=== PATIENT | female | born 1965 | race Caucasian/White ===

== ENCOUNTER 2023-05-30 15:53 | Outpatient (CLI) | payer OTHER, SELFPAY ==
--- NOTE | 2023-05-30 16:00 | CRLHL7_ITS ---
For Patients: As a result of the Cures Act, medical imaging exams and procedure reports are released immediately into your electronic medical record. You may view this report before your referring provider. If you have questions, please contact your health care provider. INDICATION: Other specified soft tissue disorders. Recent trauma. COMPARISON: None. TECHNIQUE: A compression venous ultrasound exam was performed of the left lower extremity using smith-scale imaging, color Doppler and spectral Doppler analysis. FINDINGS: Sonographic imaging of the left lower extremity demonstrates normal compressibility and color Doppler venous blood flow within the common femoral, femoral, deep femoral, and proximal greater saphenous veins. At a lower level the popliteal, peroneal, and posterior tibial veins also show normal compressibility and color Doppler venous blood flow. Limited imaging of the contralateral groin demonstrates a normal spectral waveform and color Doppler venous blood flow within the right common femoral vein. IMPRESSION: Negative for acute DVT in the left lower extremity. Dictated by Marlena Medrano MD @ 05/30/2023 9:47:00 PM (Electronically Signed)
== END 2023-05-30 15:54 | disposition home or self-care (01) ==
LOC: US 15:56
PROVIDERS: PCP Physician Assistant Medical; Visit Provider Physician Assistant Medical
DX: M79.89 Other specified soft tissue disorders (principal)
CPT/HCPCS: 93971

== ENCOUNTER 2023-06-09 11:52 | Emergency (ER) | payer OTHER, SELFPAY ==
[2023-06-09 11:58] VITALS: BP 129/76; PULSE 87; RESP 18; TEMP 36.6; O2SAT 97; BMI 37.1
--- NOTE | 2023-06-09 12:45 | CRLHL7_ITS ---
For Patients: As a result of the Century Cures Act, medical imaging exams and procedure reports are released immediately into your electronic medical record. You may view this report before your referring provider. If you have questions, please contact your health care provider. INDICATION: Left leg pain and swelling. Lump anterior lower leg. TECHNIQUE: Ultrasound venous duplex lower left extremity. Compression venous exam was performed using smith-scale, color Doppler, and spectral Doppler analysis. COMPARISON: 05/30/2023 FINDINGS: Sonographic imaging demonstrates the left common femoral, deep femoral, superficial femoral, popliteal, posterior tibial and greater saphenous and the contralateral right common femoral veins to be fully compressible with normal color Doppler blood flow. Subcutaneous hematoma in the anterior left lower extremity, measuring 9.0 x 1.1 x 5.8 cm. IMPRESSION: 1. No left lower extremity DVT. 2. Subcutaneous hematoma in the left lower extremity, measuring 9.0 x 1.1 x 5.8 cm. Dictated by Salty Howard MD @ 06/09/2023 4:42:08 PM Dictated by: Salty Howard MD @ 06/09/2023 16:42:15 (Electronically Signed)
--- NOTE | 2023-06-09 15:17 | ED.NURSE ---
pt had ultrasound and is waiting in waiting room. pt updated that results still pending and is okay with staying in waiting room until results back.
--- NOTE | 2023-06-09 15:20 | ED.NURSE ---
pt roomed, dr. batres talking to her.
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
--- OUTSIDE RECORDS SUMMARY | 2023-06-09 15:50 | XMS_ITS | Continuity of Care Document ---
Author Name Unknown Organization [facility] Address [address] [address] [place] [address] Phone Care Team Providers Care Jockey Room Custodian Name Role Phone Fern BORRERO, Ahchanelle Unavailable Unavailable Allergies, Adverse Reactions, Alerts Substance Reaction Status Criticality PENICILLIN Active No Information Medications Medication Instructions Dosage Effective Dates (start - stop) Status Comments sulfasalazine 500 mg tablet,delayed release take 3 tablet by oral route 2 times every day after meals 1500 MG - Active Victoza 2-Georges 0.6 mg/0.1 mL (18 mg/3 mL) subcutaneous pen injector inject 1.8 milligrams by subcutaneous route every day 1.8 milligrams - Active rosuvastatin 40 mg tablet take 1 tablet by oral route every day 40 MG - Active Jardiance 25 mg tablet take 1 tablet by oral route every day in the morning 25 MG - Active folic acid 1 mg tablet take 1 tablet by oral route every day 1 MG - Active metformin 500 mg tablet take 2 tablet by oral route 2 times every day with morning and evening meals 1000 MG - Active Procedures Procedure Date Routine Serum Collection Offic/outpt E&m Estab Low-mod 3 Routine Serum Collection Colonoscopy Flex; W/bx 1/mx Level Iv-surg Path Gross/micro 23 Routine Serum Collection Offic/outpt E&m Estab Low-mod 2 Routine Serum Collection Offic/outpt E&m Estab Low-mod 1 Routine Serum Collection Established Level 2 Routine Serum Collection Urea Nitro; Real Creatinine; Bld Offic/outpt E&m Estab Mod-hi 2 19 Routine Serum Collection Comp Metabolic Panel Ferritin Bilirubin; Direct Iron Iron Binding Capacity Vitamin D; [address]; Hg/pltlt Ct Auto/compl 19 Routine Serum Collection Urea Nitro; Real Creatinine; Bld Offic/outpt E&m Estab Low-mod 8 Routine Serum Collection Immuniz Admin; 1/combo Vacc/to 18 Pneumococcal Polysacch Vac-stephon 18 Vitamin D; 25 Hydroxy Basic Metabolic Panel Offic/outpt E&m New Mod-hi Routine Serum Collection Immuniz Admin; 1/combo Vacc/to 18 [id number] Vaccine Iron Iron Binding Capacity Ferritin Bilirubin; Direct Comp Metabolic Panel Bld Ct; Hg/pltlt Ct Auto/compl 18 Advance Directives Directive Yes / No Effective Date File Name No Information Encounters Encounter Description Practice Location Reason(s) For Visit Diagnoses Date Provider Providers Copied on Encounter [facility], [address] [address], [place], [id number], [place] tel:[phone] [facility] No Information 3 Fern Sim. [address] [facility], [facility] [address], [place], [place], [id number], [place]. tel:[phone] [facility] [address] [address], [place], [id number], [place] tel:[phone] [facility] Ulcerative (chronic) pancolitis without complications [address] [place] [address], [address], [id number], [place]. tel:[phone] Referring Provider: Referral Self. [facility], [address] [address], [place], [id number], [place] tel:[phone] [facility] No Information 3 Fern Sim. [address] [place] [address], [facility] [address], [place], [id number], [place]. tel:[phone] Offic/outpt E&m Estab Low-mod [facility], [address] [address], [place], [id number], [place] tel:[phone] [facility] GI Symptoms or Concerns (chief complaint) Ulcerative (chronic) pancolitis without complications 3 Fern Sim. [address] [facility], [address], [id number], [place]. tel:[phone] Referring Provider: Referral Self. [facility], [address] [address], [place], [id number], [place] tel:[phone] [facility] GI Symptoms or Concerns (chief complaint) Ulcerative (chronic) pancolitis without complicationsE xternal hemorrhoidsEnc ounter for screening for malignant neoplasm of colonResidual hemorrhoidal skin tagsUlcerative (chronic) pancolitis without complications 3 Fern Sim. [address] [facility], [facility] [address], [place], [id number], [place]. tel:[phone] Referring Provider: Referral Self. [facility], [address] [address], [place], [id number], [place] tel:[phone] [facility] No Information 2 No Information [facility], [address] [address], [place], [id number], [place] tel:[phone] [facility] Chronic ulcerative rectosigmoidit is without complications [address] [place] [address], [id number], [place]. tel:[phone] Referring Provider: Referral Self. [facility], [address] [address], [place], [place], [id number], [place] tel:[phone] [facility] No Information 2 Fern Sim. [address] [place] [address], [id number], [place]. tel:[phone] Offic/outpt E&m Estab Low-mod [facility], [address] [address], [place], [place], [id number], [place] tel:[phone] [facility] GI Symptoms or Concerns (chief complaint) Ulcerative pancolitis 2 Fern Sim. [address] [place] [address], [id number], [place]. tel:[phone] Referring Provider: Referral Self. Offic/outpt E&m Estab Low-mod [facility], [address] [address], [place], [place], [id number], [place] tel:[phone] [facility] GI Symptoms or Concerns (chief complaint) Chronic ulcerative rectosigmoidit is without complicationsP ersonal history of colonic polyps 1 Fern Sim. [address] [place] [address], [id number], [place]. tel:[phone] Referring Provider: Gertrudis ELY, [address] [place], [address]. tel:[phone] [facility], [address] [address], [place], [place], [id number], [place] tel:[phone] [facility] Chronic ulcerative rectosigmoidit is without complications 1 Fern Sim. [address] [place] [address], [id number], [place]. tel:[phone] Referring Provider: Referral Self. [facility], [address] [address], [place], [id number], [place] tel:[phone] [facility] No Information 1 Bhumi Estrada. [address] [facility], [facility] [address], [place], [id number], [place]. [phone] Established Level 2 [facility], [address] [address], [place], [id number], [place] tel:[phone] [facility] GI Symptoms or Concerns (chief complaint) Chronic ulcerative rectosigmoidit is without complications 1 Alex Awad. [address] [facility], [address], [id number], [place]. [phone] Referring Provider: Referral Self. [facility], [address] [address], [place], [id number], [place] tel:[phone] [facility] No Information 1 Fern Sim. [address] [facility], [facility] [address], [place], [id number], [place]. [phone] [facility], [address] [address], [place], [id number], [place] tel:[phone] [facility] Ulcerative (chronic) rectosigmoidit is without complications 9 Fern Sim. [address] [facility], [facility] [address], [place], [id number], [place]. tel:[phone] Referring Provider: Referral Self. [facility], [address] [address], [place], [id number], [place] tel:[phone] [facility] Ulcerative rectosigmoidit is without complication 9 Fern Sim. [address] [facility], [address], [id number], [place]. tel:[phone] Offic/outpt E&m Estab Mod-hi 2 [facility], [address] [address], [place], [id number], [place] tel:[phone] [facility] GI Symptoms or Concerns (chief complaint) Ulcerative rectosigmoidit is without complicationPe rsonal history of colonic polypsDietary counseling and surveillanceEl evated blood-pressure reading, w/o diagnosis of htn 9 Fern Sim. [address] [facility], [facility] [address], [place], [place], [id number], [place]. tel:[phone] Referring Provider: Referral Self. [facility], [address] [address], [place], [id number], [place] tel:[phone] [facility] No Information 9 Bhumi Estrada. [address] [facility], [facility] [address], [place], [id number], [place]. tel:[phone] [facility], [address] [address], [place], [id number], [place] tel:[phone] [facility] Ulcerative rectosigmoidit is without complication 9 Fern Sim. [address] [facility], [facility] [address], [place], [id number], [place]. tel:[phone] Referring Provider: Chiquis Shirley MD, [address] [facility] [address], [facility] [place], [address] . tel:[phone] Offic/outpt E&m Estab Low-mod [facility], [address] [address], [place], [id number], [place] tel:[phone] [facility] GI Symptoms or Concerns (chief complaint) Ulcerative rectosigmoidit is without complicationDi etary counseling and surveillance 8 Fern Sim. [address] [facility], [facility] [address], [place], [id number], [place]. tel:[phone] Referring Provider: Referral Self. Offic/outpt E&m New Mod-hi [facility], [address] [address], [place], [id number], [place] tel:[phone] [facility] GI Symptoms or Concerns (chief complaint) Ulcerative rectosigmoidit is without complicationDi etary counseling and surveillance 8 Fern Sim. [address] [facility], [facility] [address], [place], [place], [id number], [place]. tel:[phone] Referring Provider: Emily Huang MD S, [address] [place], [address]. tel:[phone] Family History Family Member Type Diagnosis Age At Onset Son Problem (finding) Alive and well Brother Problem (finding) asthma Father Problem (finding) Thyroid disorder Mother Problem (finding) Irritable bowel disease Brother Problem (finding) Thyroid disorder Sister Problem (finding) Thyroid disorder Mother Problem (finding) Daughter Problem (finding) asthma Daughter Problem (finding) Alive and well Sister Problem (finding) Alive and well Immunizations Vaccine Date Status Comments Influenza administered Note: [facility] bi-d irectional interface ; Source: Other Registry Influenza, injectable, Madin Sridevi Canine Kidney, quadrivalent with preservative administered Note: MII C bi- directional interface ; Source: Other Registry SARS-COV-2 (COVID-19) vaccin e, mRNA, spike protein, LNP, preservative free, 30 mcg/0.3mL dose administered Note: [facility] bi-direct ional interface ; Source: Other Registry SARS-COV-2 (COVID-19) vaccin e, mRNA, spike protein, LNP, preservative free, 30 mcg/0.3mL dose administered Note: [facility] bi-direct ional interface ; Source: Other Registry Influenza administered Note: [facility] bi-d irectional interface ; Source: Other Registry Fluzone Quad 6mo or older administered Source: Other Provid er Influenza administered Note: [facility] bi-d irectional interface ; Source: Other Registry Pneumovax 23 administered Note: [facility] bi-d irectional interface ; Source: Other Registry Pneumo (2 yrs or older)(PPV) administered Source: New Immunization Record Influenza, injectable, MDCK, preservative free Flucelvax Quad 2017-2018Y administered Source: Other Provid er Afluria Qd administered Note: M [facility] bi-directional interface ; Source: Other Registry Afluria Qd administered Note: M [facility] bi-directional interface ; Source: Other Registry Fluzone Quad 6mo or older administered Note: [facility] bi-direct ional interface ; Source: Other Registry Prevnar administered Note: [facility] bi-d irectional interface ; Source: Other Registry Pneumococcal conjugate PCV administere d Source: New Immunization Record Influenza administered Note: [facility] bi-d irectional interface ; Source: Other Registry Influenza, injectable, quadrivalent, preservative free, 3 yrs or older administered Source: Other Provi poornima tetanus toxoid, reduced diphtheria toxoid, and acellular pertussis vaccine, adsorbed administered Note: [facility] bi-direct ional interface ; Source: Other Registry influenza, high dose seasona l, preservative-free administered Note: [facility] bi-direct ional interface ; Source: Other Registry Influenza administered Note: [facility] bi-d irectional interface ; Source: Other Registry Influenza, injectable,quadrivalent, preservative free, pediatric administered Note: [facility] bi-directional interface ; Source: Other Registry tetanus toxoid, reduced diphtheria toxoid, and acellular pertussis vaccine, adsorbed administered Note: [facility] bi-direct ional interface ; Source: Other Registry Influenza, seasonal, injectable, preservative free administered Note: [facility] bi-directional interface ; Source: Other Registry Influenza, seasonal, injectable, preservative free administered Note: [facility] bi-directional interface ; Source: Other Registry Influenza, seasonal, injectable, preservative free administered Note: [facility] bi-directional interface ; Source: Other Registry Influenza, seasonal, injectable, preservative free administered Note: [facility] bi-directional interface ; Source: Other Registry hepatitis B immune globulin administered Note: [facility] bi-directional interface ; Source: Other Registry Engerix-B administered Note: [facility] bi-d irectional interface ; Source: Other Registry Hep B, adult, 3 dose administered Source: Other Provider Influenza, seasonal, injectable administe red Note: [facility] bi- directional interface ; Source: Other Registry hepatitis B vaccine, unspecified formulation administered Note: [facility] bi-di rectional interface ; Source: Other Registry Hep B, adult, 3 dose administered Source: Other Provider hepatitis B vaccine, unspecified formulation administered Note: [facility] bi-di rectional interface ; Source: Other Registry Hep B, adult, 3 dose administered Source: Other Provider Influenza, seasonal, injectable administe red Note: [facility] bi- directional interface ; Source: Other Registry Influenza, seasonal, injectable administe red Note: [facility] bi- directional interface ; Source: Other Registry influenza virus vaccine, unspecified formulation administered Note: [facility] bi-di rectional interface ; Source: Other Registry influenza virus vaccine, unspecified formulation administered Note: [facility] bi-di rectional interface ; Source: Other Registry tetanus and diphtheria toxoi ds, adsorbed, preservative free, for adult use (2 Lf of tetanus toxoid and 2 Lf of diphtheria toxoid) administered Note: [facility] bi-direct ional interface ; Source: Other Registry immune globulin, intramuscular administer ed Note: [facility] bi- directional interface ; Source: Other Registry Payers Payer name Insurance type Covered libertarian ID Authorremingtona edmundo(s) Index CI [id number] [employer] Plan CI [id number] [employer] Plan CI [id number] Social History Type Description Quantity Date Captured Comments Alcohol Use Details Unknown Caffeine Use Details Unknown Tobacco Use Status No Information Smoking Status No Information Sex Female Chief Complaint And Reason For Visit No Information Reason For Referral Reason For Referral No Information Plan Of Treatment Date Type Action Status Goal Lifestyle education regardin g diet completed Goal Lifestyle education regardin g diet completed Goal Lifestyle education regardin g diet completed Referral Ordered: Colonoscopy Appointment date/timeframe: 09/19/2022 ordered Referral Ordered: follow-up visit with Chiquis Shirley MD 6 Months Appointment date/timeframe: 6 Months ordered Referral Ordered: Creatinine Appointment date/timeframe: 07/28/2019 ordered Referral Ordered: DEXA Bone Density Study; Axial Skeleton (e.g. Hips, Pelvis, Spine) Appointment date/timeframe: 09/05/2019 ordered History Of Present Illness Encounter Date Complaint History Of Prese nt Illness GI Symptoms or Concerns The luis ent is a 57-year-old female who had an in-person visit today for followup of ulcerative pancolitis diagnosed at age 20. I last saw the patient in GI Clinic in August 2021. She had been on balsalazide, but due to costs, was switched to sulfasalazine 3 tablets twice daily with folic acid 1 mg daily in August 2021. She reports she has been doing quite well on sulfasalazine. Denies any diarrhea or abdominal pain or rectal bleeding or rectal urgency. She has had a colonoscopy on September 19 of this year that showed 2 tiny patches of erythema with some tiny erosions, but the vast majority of the colon looked completely normal. Biopsies of these areas showed some minimal ulcerative colitis, but the remainder of the biopsies showed inactive ulcerative colitis. I reviewed her BUN and creatinine from July 31, 2022, and these were normal. GI Symptoms or Concerns GI Symptoms or Concerns The luis ent is a 56-year-old female who had in-person visit today for followup of ulcerative colitis. The patient was initially diagnosed with ulcerative proctitis at age 20. We received the records from an outside colonoscopy from June 2020. This revealed inactive ulcerative colitis throughout the entire colon with some mild ulcerative colitis in the transverse colon. The patient is still on balsalazide 4 tabs twice daily, but she has procured a supply of sulfasalazine and folic acid, and will be starting this soon when runs out of balsalazide as this will be less expensive than balsalazide. The patient reports she is doing well at this time. Denies any significant GI symptoms. I reviewed her BUN and creatinine from April, which were normal. The patient will be due for repeat colonoscopy with colon biopsies for dysplasia surveillance in June of this year. GI Symptoms or Concerns The luis ent is a 56-year-old female who had an in-person visit today for followup of ulcerative proctosigmoiditis. The patient initially was diagnosed with ulcerative proctitis at age 20, but subsequently developed ulcerative proctosigmoiditis. She was previously on Lialda, but switched to balsalazide as this was slightly cheaper, but is still relatively expensive. The patient reports that she had a colonoscopy at [facility] either last year or this year and she may have had some inflammation at that time. We do not have those results at this time. The patient denies any GI symptoms at this time. She denies any diarrhea or rectal bleeding or rectal urgency or abdominal pain. She had a BUN and creatinine from May 06, 2021, that were normal. I also reviewed her LFTs from May 03, 2021, at an outside facility and these were normal. She also had a CBC from April 2020 that was within acceptable limits. She reports she had a mildly low vitamin D level recentl GI Symptoms or Concerns Merle Lund is a 55-year-old woman with longstanding chronic proctosigmoiditis. She has generally done well on maintenance Lialda (mesalamine). It sounds like even the generic version of this has proved too costly ($2000 for 3-month prescription). She was met to discuss this recently with Dr. Shirley on a telephone visit, but she got caught on a work call that disrupted the timing of her visit with Dr. Shirley, thus this visit today. She is doing well with no symptoms and reports that her colitis has been quiescent for quite some time on maintenance treatment.She has been on sulfasalazine in the past and it sounds like she tolerated that.Today is a televisit. The patient consented to this format. She was home and comfortable with her visit setting. No one else was listening in. She denies any symptoms that would require immediate in-person evaluation. Direct patient discussion time was 9 minutes. A total of 15 minutes was spent on the appointment including chart rev GI Symptoms or Concerns Patient is a 54-year-old female who is here for followup of ulcerative proctosigmoiditis. She was last seen in GI clinic in June 2018.She was initially diagnosed with ulcerative proctitis in 03/2019 and subsequently found to have ulcerative proctosigmoiditis. She is currently on Lialda 4.8 g daily and overall doing quite well. Unfortunately, Lialda is quite expensive on her current insurance. Patient reports that overall she is doing quite well. She reports 1 to 2 semi formed to formed bowel movements per day and denies any significant abdominal pain or rectal bleeding or rectal urgency or nausea or vomiting or unintentional weight loss. She reports she has some occasional diarrhea more related to her diet and to metformin. Patient denies a prior bone density scan. GI Symptoms or Concerns The symp toms began 33 years ago. The symptoms are reported as being mild. The symptoms occur randomly. The location is rectosigmoid colon. Aggravating factors include nothing. Relieving factors include lialda. She states the symptoms are chronic and are controlled. The patient is a 53-year-old female who is here for followup of ulcerative proctosigmoiditis. The patient was diagnosed with ulcerative proctitis at age 20 and subsequently was found to have ulcerative proctosigmoiditis. She was initially treated with sulfasalazine for a few years and was off medications for a few years and then was treated with mesalamine enemas as needed. Her last colonoscopy which was in January 2017 revealed moderate rectosigmoid inflammation. The patient reports her disease has always been confined to the rectum and sigmoid. She was started on Lialda 4.8 g daily after that colonoscopy, but stopped taking it when she ran out in November 2017. At her last GI Clinic visit, we restarted her on Lialda 4 GI Symptoms or Concerns The symp toms began 32 years ago. The symptoms are reported as being mild. The symptoms occur randomly. The location is rectosigmoid colon. Aggravating factors include stress. Relieving factors include rowasa enemas, lialda. She states the symptoms are chronic and are stable. Patient is a 52-year-old female who is here for evaluation of ulcerative proctosigmoiditis. Patient reports she was diagnosed with ulcerative proctitis at age 20. She was treated with sulfasalazine for 4 to 5 years and then stopped taking medications, because she felt better. She reports she would have occasional flares of symptoms usually bloody diarrhea for a few days to a few weeks intermittently. Starting about 8 years ago, she started using mesalamine enemas as needed for these flares. She reports that she used these enemas, perhaps for 4 episodes over that 8-year period. She reports she had a colonoscopy in March 2014 that revealed 1 colon polyp, but otherwise the inflammation was minimal. She had Functional Status Date Functional Assessmen t No Information Instructions Date Instruction Additional Infor eduardo -Labs as ordered-Con tinue sulfasalazine 3 tabs twice daily and folic acid 1 mg daily-Repeat colonoscopy with colon biopsies for dysplasia surveillance in 08/2024-Avoid NSAIDs-Vitamin D 2000 units daily-Calcium citrate 600 mg twice daily if okay with PCP/urologist given history of kidney stones-Pneumovax booster in [id number]/[id number] in 1 year Related to Ulcerative (chronic) pancolitis without complications Colon Cancer Prevention Related to External hemorrhoids Hemorrhoids (External) Related t o External hemorrhoids -Labs as ordered-Pat ient will switch from balsalazide 4 tabs twice daily to sulfasalazine 3 tabs twice daily and folic acid when current supply of balsalazide runs out - patient will gradually increase to goal dose of sulfasalazine 3 tabs twice daily over a 2-3 week period-Colonoscopy with colon biopsies for dysplasia surveillance in 06/2022-Avoid NSAIDs-Vitamin D 2000 units daily-Calcium citrate 600 mg twice daily if okay with PCP/urologist given history of kidney stones-Pneumovax booster in 06/20230036-[id number] in 06/2022, after colonoscopy - patient will follow-up before then if she develops persistent significant GI symptoms Related to Ulcerative pancolitis -Patient will switch from balsalazide to sulfasalazine and folic acid as sulfasalazine is likely to be less expensive - patient will gradually increase to goal dose of sulfasalazine 3 tabs twice daily over a 2-3 week period-Will request results of colonoscopy performed at 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 -Labs as ordered-Con tinue Lialda 4.8 grams daily - this medication is expensive on her insurance plan so she will check with her insurance and will let us know if she wants to switch to another less expensive mesalamine medication or to sulfasalazine and folic acid - we discussed that if she starts sulfasalazine then she will gradually increase the dose to the goal dose of 3 tabs twice daily over a 10-14 day period-Avoid NSAIDs-Calcium citrate and vitamin D-Bone density scan-Repeat colonoscopy in 01/2022 due to history of colon mlcsrl-Ertfko-uh in 1 year 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 Lifestyle education regarding di et Related to Dietary counseling and surveillance -Labs as ordered-Con tinue Lialda 4.8 grams daily-Avoid NSAIDs-Calcium and vitamin D-Pneumovax vaccine today-Repeat colonoscopy in 01/2022 due to history of colon erhnfe-Iumoma-ub in 1 year 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 Lifestyle education regarding di et Related to Dietary counseling and surveillance -Labs as ordered-Res tart Lialda 4.8 grams daily - new prescription sent-Avoid NSAIDs-Calcium and vitamin D-Prevnar vaccine today-Pneumovax vaccine after at least 8 weeks-Repeat colonoscopy in 01/2022 due to history of colon tnlksm-Ecfskc-du in 6 months 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
== END 2023-06-09 15:50 | disposition home or self-care (01) ==
LOC: ED 15:47
PROVIDERS: Emergency Provider Family Medicine; PCP Physician Assistant Medical
DX: S89.92XA Unspecified injury of left lower leg, initial encounter (principal); W10.9XXA Fall (on) (from) unspecified stairs and steps, initial encounter
CPT/HCPCS: 93971; 99283; 99284

== ENCOUNTER 2023-07-24 08:44 | Outpatient (CLI) | payer OTHER, SELFPAY ==
--- OUTSIDE RECORDS SUMMARY | 2023-07-25 06:39 | XMS_ITS | Continuity of Care Document ---
Author Name Unknown Organization [facility] Address [address] [address] [place] [address] Phone Care Team Providers Care Video Machines Mechanic Name Role Phone Joe Romero MD Unavailable Unavailabl e Allergies, Adverse Reactions, Alerts Substance Reaction Status [...] Serum Collection Immuniz Admin; 1/combo Vacc/to 18 [id number] Vaccine Iron Iron Binding Capacity Ferritin Bilirubin; Direct Comp Metabolic Panel Bld Ct; Hg/pltlt Ct Auto/compl 18 Advance Directives Directive Yes / No Effective Date File Name No Information Encounters Encounter Description Practice Location Reason(s) For Visit Diagnoses Date Provider Providers Copied on Encounter [facility] [address] [address], [place], [id number], [place] tel:[phone] [facility] No Information 3 Jaime Diaz. [address] [facility], [place], [place], [id number], [place]. tel:[phone] [facility] [address] [address], [place], [id number], [place] tel:[phone] [facility] Ulcerative (chronic) pancolitis without complications 3 Fern Sim. [address] [facility], [address], [place], [address], [place]. tel:[phone] Referring Provider: Referral Self, USE FOR SELF REFERRALS. [facility], [address] [address], [place], [id number], [place] tel:[phone] [facility] No Information 3 Fern Sim. [address] [facility], [place], [address], [place]. tel:[phone] Offic/outpt E&m Estab Low-mod [facility], [address] [address], [place], [id number], [place] tel:[phone] [facility] GI Symptoms or Concerns (chief complaint) Ulcerative (chronic) pancolitis without complications 3 Fern Sim. [address] [facility], [address], [place], [address], [place]. tel:[phone] Referring Provider: Referral Self, USE FOR SELF REFERRALS. [facility], [address] [address], [place], [id number], [place] tel:[phone] [facility] GI Symptoms or Concerns (chief complaint) Ulcerative (chronic) pancolitis without complicationsE xternal hemorrhoidsEnc ounter for screening for malignant neoplasm of colonResidual hemorrhoidal skin tagsUlcerative (chronic) pancolitis without complications 3 Fern Sim. [address] [place] [address], [address], [place], [id number], [place]. tel:[phone] Referring Provider: Referral Self, USE FOR SELF REFERRALS. [facility], [address] [address], [place], [id number], [place] tel:[phone] [facility] No Information 2 No Information [facility], [address] [address], [place], [id number], [place] tel:[phone] [facility] Chronic ulcerative rectosigmoidit is without complications 2 Fern Sim. [address] [facility], [place], [place], [address], [place]. tel:[phone] Referring Provider: Referral Self, USE FOR SELF REFERRALS. [facility], [address] [address], [place], [id number], [place] tel:[phone] [facility] No Information 2 Fern Sim. [address] [place] [address], [place] [address], [place], [address], [place]. tel:[phone] Offic/outpt E&m Estab Low-mod [facility], [address] [address], [place], [id number], [place] tel:[phone] [facility] GI Symptoms or Concerns (chief complaint) Ulcerative pancolitis 2 Fern Sim. [address] [place] [address], [address], [place], [address], [place]. tel:[phone] Referring Provider: Referral Self, USE FOR SELF REFERRALS. Offic/outpt E&m Estab Low-mod [facility], [address] [address], [place], [id number], [place] tel:[phone] [facility] GI Symptoms or Concerns (chief complaint) Chronic ulcerative rectosigmoidit is without complicationsP ersonal history of colonic polyps 1 Fern Sim. [address] [place] [address], [address], [place], [place], [id number], [place]. tel:[phone] Referring Provider: Gertrudis ELY, [address], [address]. tel:[phone] [facility], [address] [address], [place], [id number], [place] tel:[phone] [facility] Chronic ulcerative rectosigmoidit is without complications 1 Fern Sim. [address] [facility], [address], [place], [address], [place]. tel:[phone] Referring Provider: Referral Self, USE FOR SELF REFERRALS. [facility], [address] [address], [place], [address], [place] tel:[phone] [facility] No Information 1 Bhumi Estrada. [address] [facility], [address], [id number], [place]. tel:[phone] Established Level 2 [facility], [address] [address], [place], [address], [place] tel:[phone] [facility] GI Symptoms or Concerns (chief complaint) Chronic ulcerative rectosigmoidit is without complications [address] Awad. [address] [place] [address], [id number], [place]. tel:[phone] Referring Provider: Referral Self, USE FOR SELF REFERRALS. [facility], [address] [address], [place], [address], [place] tel:[phone] [facility] No Information 1 Fern Sim. [address] [place] [address], [id number], [place]. tel:[phone] [facility], [address] [address], [place], [address], [place] tel:[phone] [facility] Ulcerative (chronic) rectosigmoidit is without complications 9 Fern Sim. [address] [place] [address], [id number], [place]. tel:[phone] Referring Provider: Referral Self, USE FOR SELF REFERRALS. [facility], [address] [address], [place], [address], [place] tel:[phone] [facility] Ulcerative rectosigmoidit is without complication 9 Fern Sim. [address] [facility] [address], [place], [address], [place]. tel:[phone] Offic/outpt E&m Estab Mod-hi 2 [facility], [address] [address], [place], [address], [place] tel:[phone] [facility] GI Symptoms or Concerns (chief complaint) Ulcerative rectosigmoidit is without complicationPe rsonal history of colonic polypsDietary counseling and surveillanceEl evated blood-pressure reading, w/o diagnosis of htn 9 Fern Sim. [address] [facility], [address], [place], [id number], [place]. tel:[phone] Referring Provider: Referral Self, USE FOR SELF REFERRALS. [facility], [address] [address], [place], [address], [place] tel:[phone] [facility] No Information 9 Bhumi Estrada. [address] [facility], [place], [place], [id number], [place]. tel:[phone] [facility], [address] [address], [place], [address], [place] tel:[phone] [facility] Ulcerative rectosigmoidit is without complication 9 Fern Sim. [address] [facility], [address], [id number], [place]. tel:[phone] Referring Provider: Chiquis Shirley MD, [address] [facility] [address], [place], [address] . tel:[phone] Offic/outpt E&m Estab Low-mod [facility], [address] [address], [facility] [place], [address], [place] tel:[phone] [facility] GI Symptoms or Concerns (chief complaint) Ulcerative rectosigmoidit is without complicationDi etary counseling and surveillance 8 Fern Sim. [address] [place] [address], [place] [address], [place], [address], [place]. tel:[phone] Referring Provider: Referral Self, USE FOR SELF REFERRALS. Offic/outpt E&m New Mod-hi [facility], [address] [address], [place], [place], [id number], tel:[phone] [facility] GI Symptoms or Concerns (chief complaint) Ulcerative rectosigmoidit is without complicationDi etary counseling and surveillance 201 8 Fern BORRERO chanelle. [address] [facility], [address], [place], [place], [address], [place]. tel:[phone] Referring Provider: Emily Huang MD S, [address] [place], [address]. tel:[phone] Family History Family Member Type Diagnosis Age [...] Registry Payers Payer name Insurance type Covered alliance party ID Roselyn wyatt(s) [employer] [place] [id number] [employer] [place] [id number] [employer] [place] [id number] Social History Type Description Quantity Date Captured Comments Sex Female Smoking Status No Information Chief Complaint And Reason For Visit No [...] Hips, Pelvis, Spine) Appointment date/timeframe: 09/05/2019 ordered Appointment Merle Lund BOOKED History Of Present Illness Encounter Date Complaint [...] reports that she had a colonoscopy at [facility] either last year or this year and [...] given history of kidney stones-Pneumovax booster in 06/20238638-Igzqvx-vh in 1 year Related to Ulcerative (chronic) [...] given history of kidney stones-Pneumovax booster in 06/20230179-Gthgxw-dm in 06/2022, after colonoscopy - patient will [...] period-Will request results of colonoscopy performed at [facility]-Avoid NSAIDs-Calcium citrate and vitamin D-Patient will need repeat colonoscopies with random colon biopsies for dysplasia surveillance every 2 pvaag-Heslyf-lr in 3 months Related to Chronic ulcerative [...] in 01/2022 due to history of colon gdjred-Yaxgvw-br in 1 year 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 Lifestyle education regarding di et Related to Dietary counseling and surveillance -Labs as ordered-Con tinue Lialda 4.8 grams daily-Avoid NSAIDs-Calcium and vitamin D-Pneumovax vaccine today-Repeat colonoscopy in 01/2022 due to history of colon snxkhf-Ixdlbe-nl in 1 year 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 Lifestyle education regarding di et Related to Dietary counseling and surveillance -Labs as ordered-Res tart Lialda 4.8 grams daily - new prescription sent-Avoid NSAIDs-Calcium and vitamin D-Prevnar vaccine today-Pneumovax vaccine after at least 8 weeks-Repeat colonoscopy in 01/2022 due to history of colon qsdfmv-Xxlkqa-jn in 6 months 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
== END 2023-07-24 08:45 | disposition home or self-care (01) ==
LOC: NFLDREF 07-25 06:37
PROVIDERS: PCP Physician Assistant Medical; Referring Provider Physician Assistant Medical; Visit Provider Physician Assistant Medical
DX: Z00.00 Encounter for general adult medical examination without abnormal findings (principal); E11.9 Type 2 diabetes mellitus without complications; E78.5 Hyperlipidemia, unspecified; E55.9 Vitamin D deficiency, unspecified; E66.9 Obesity, unspecified
CPT/HCPCS: 80053; 80061; 82043; 82570; 82607; 84443

== ENCOUNTER 2024-04-21 08:14 | Outpatient (CLI) | payer OTHER, SELFPAY | END 2024-04-21 08:15 | disposition home or self-care (01) | PROVIDERS: PCP Physician Assistant Medical; Visit Provider Physician Assistant Medical | DX: Z00.00 Encounter for general adult medical examination without abnormal findings (principal); E11.9 Type 2 diabetes mellitus without complications; E78.5 Hyperlipidemia, unspecified; E55.9 Vitamin D deficiency, unspecified; E66.9 Obesity, unspecified | CPT/HCPCS: 80076 ==

== ENCOUNTER 2024-07-01 16:12 | Outpatient (CLI) | payer OTHER, SELFPAY ==
--- OUTSIDE RECORDS SUMMARY | 2024-07-01 16:15 | XMS_ITS | Clinical Summary ---
Author Organization [employer] Address [address] [place] [address] Care Team Providers Care Headmaster/Mistress Name Role Phone Юлия Ascencio MD Primary Care Provider [phone] Source Comments You are receiving this document as you are listed as the primary care provider,follow-up provider, or the patient has been referred to you for consultation.This is in compliance with the Medicare and[facility] Foundation[facility] EHR Incentive Program,which states Providers who transition their patient to another setting of careor provider of care or refers their patient to another provider of care shouldprovide summary care record for each transition of care or referral. [employer] (formerly [employer]) Allergies Active Allergy Reactions Criticality Noted Date Comments Penicillins Unknown 04/29/2020 Unknown Medications Medication Sig Dispensed Refills Start Date End Date Status UNKNOWN MEDICATION LW Comment:CPAP 13 CM H2O [facility] LW Addl Instr:SS 03/20/2005 AHI 79 RDI 95 low sats 86% SAK PATIENT SEEN IN [place] 08/17/2010 Active cholecalciferol (VITAMIN D3) 1000 UNITS tablet Take 2,000 Units by mouth daily. Active mesalamine (LIALDA) 1.2 G enteric coated tablet Take 4,800 mg by mouth daily with breakfast. Active metFORMIN (GLUCOPHAGE) 500 MG tablet Take 2 Tabs by mouth two times a day with meals. 360 Tab 3 11/08/2017 Active omega-3 fatty acids (FISH OIL) 1000 MG capsule Take 2 g by mouth daily. Active Artificial Tear Solution (SOOTHE XP OP) Active rosuvastatin (CRESTOR) 10 MG tabletIndications :Type 2 diabetes mellitus without complication, without long-term current use of insulin (HRC) Take 1 Tablet by mouth daily. 90 Tablet 3 11/19/2019 Active JARDIANCE 25 MG tablet Take 1 Tablet (25 mg) by mouth daily. 07/03/2022 Active folic acid 1 MG tablet Take 1 Tablet (1 mg) by mouth daily. 08/02/2022 Active VICTOZA 18 MG/3ML SOPN injection Inject 1.2 mg subcutaneously daily. 06/18/2022 Active sulfaSALAzine (AZULFIDINEENTAB) 500 MG enteric coated tablet Take 3 Tablets (1,500 mg) by mouth two times a day. 08/03/2022 Active Active Problems Problem Noted Date Diagnosed Date Morbid obesity with BMI of 40.0-44.9, adult 02/25 Type II diabetes mellitus 02/04/2017 Hyperlipidemia 02/04/2017 Bicuspid aortic valve 02/04/2017 Ascending aortic aneurysm 02/04/2017 Ulcerative colitis 02/04/2017 Sleep apnea 07/13/2005 Overview (04/18/2017): LW Modifier: CPAP 13 CM H2O [facility] LW Onset: ; Obstructive Sleep Apnea Hypopnea Disorder of intestine 01/06/2004 Overview (04/18/2017): Sees 1-2 flare ups in last 7 years. ; Proctosigmoiditis Resolved Problems Problem Noted Date Diagnosed Date Resolved Date Obesity, morbid 03/26/2013 05/31/2017 Immunizations Name Administration Dates Next Due Flu Vac Preserv Free (3+yrs) 06/15/2004 IG (Immune Globulin) 07/21/1994 Influenza IIV4 (Quadrivalent) 0.5mL (35881) 04/27 Influenza, Unspecified Formulation 08/07/2003 TDAP (BOOSTRIX) 03/06/2013 Td 04/14/2003 Family History Medical History Relation Name Comments Cataract Father Diabetes Father High Cholesterol Father Hypertension Father Retinal Detachment Father x2 Coronary Artery Disease Mother Diabetes Mother High Cholesterol Mother Hypertension Mother Diabetes Brother Diabetes Paternal Grandfather Diabetes Paternal Grandmother Cataract Sister Amblyopia/Strabismus Negative Family History Cancer, Breast Negative Family History Glaucoma Negative Family History Macular Degeneration Negative Family History Relation Name Status Comments Father Mother Brother Paternal Grandfather Paternal Grandmother Sister Social History Tobacco Use Types Packs/Day Years Used Date Smoking Tobacco: Never Smokeless Tobacco: Never Alcohol Use Standard Drinks/Week Comments No 0 (1 standard drink = 0.6 oz pur e alcohol) Sex and Gender Information Value Date Recorded Sex Assigned at Not on file Gender Identity Not on file Sexual Orientation Not on file Last Filed Vital Signs Vital Sign Reading Time Taken Comments Blood Pressure 149/76 12/05/2017 6:41 PM CDT Pulse 82 12/05/2017 6:41 PM CDT Temperature 36.9 ??C (98.4 ??F) 03/22/2024 8:20 AM CD T Respiratory Rate 16 12/05/2017 6:41 PM CDT Oxygen Saturation 98% 12/05/2017 6:41 PM CDT Inhaled Oxygen Concentration - - Weight 104 kg (229 lb 4.8 oz) 11/08/2017 7:07 AM CDT Height 162.6 cm (5' 4) 11/08/2017 7:07 AM CDT Body Mass Index 39.36 11/08/2017 7:07 AM CDT Plan of Treatment Health Maintenance Due Date Last Done Comments Diabetes: Foot Exam 1966 Hep C Screening (Preventive Services) 1966 Adult Preventive Visit 1984 HepB (1) 1985 Diabetes: Urine Microalbumin 02/22/2001 02/23/2000 Colon Cancer Screening Plan Due 04/04/2006 04/03/2006 Diabetes: Lipid Panel 01/06/2010 01/06/2005, 000 Cervical Cancer Screening Due 03/27/2013 03/26/2013, 01/06/2005, 07/09/2002, Additional history exists Zoster/Shingles (1 of 2) 2016 Diabetes: HGBA1C 04/19/2017 01/17/2017 Mammogram 07/18/2017 07/18/2016, 03/27, 04/14/2013 Diabetes: Creatinine 01/17/2018 01/17/2017, 08/06/2007, 02/26/2006, Additional history exists COVID-19 Vaccine ( season) 2024 12/21/2020, 11/30/2020 Influenza (#1) 2024 05/17/2023, 06/28, 05/19/2021, Additional history exists Diabetes: Eye Exam 07/30/2024 07/30/2023, 1 09/30/2022, 08/10/2022, Additional history exists DTaP/Tdap/Td (3 - Tdap) 11/06/2026 11/07/19 17, 03/06/2013, 04/14/2003 HIV Screening (Preventive Services) Completed 02/23/2000, 12/17/1998 Pneumococcal Completed 09/27/2023, 06/27, 12/25/2017 HepA Aged Out No longer eligi ble based on patient's age to complete this topic Hib Aged Out No longer eligi ble based on patient's age to complete this topic IPV (Polio) Aged Out No longer eligi ble based on patient's age to complete this topic RSV Aged Out No longer eligi ble based on patient's age to complete this topic MCV4 Aged Out No longer eligi ble based on patient's age to complete this topic Procedures Procedure Name Priority Date/Time Associated Diagnosis Comments POCT GLYCOSYLATED HEMOGLOBIN (HB A1C) Routine 01/17/2017 10:28 AM CDT CREATININE / GFR Routine 01/17/2017 10:1 8 AM CDT Abnormal weight gain MM MAMMOGRAM SCREENING BILAT W CAD Routine 04/14/2013 12:27 PM CDT Well woman exam ANATOMICAL PATH LIQUID BASED Routine 03/26/2013 4:13 PM CDT ENDOSCOPY, COLON, SCREENING/DIAGNOSTIC Routine 04/03/2006 7:04 PM CDT LIPID PANEL & DIRECT LDL (IF NEEDED) Routine 01/06/2005 9:54 AM CDT HIV ANTIBODY Routine 02/23/2000 10:37 AM CDT ALBUMIN/CREAT RATIO Routine 02/23/2000 1 0:37 AM CDT from Last 3 Months or Most Recently Relevant to Health Maintenance Results * (ABNORMAL) POCT Glycosylated Hemoglobin (HB A1C) (01/17/2017 10:28 AM CDT) Glycosolated HGB A1C (POC) 6.4(H) 4.0 - 5.6 % PN SOFT Comment: The Rapid A1c test is designed for monitoring patients with an established diagnosis of diabetes mellitus. ??The rapid method is not suitable to establish the intial diagnosis of diabetes melitus. 01/17/2017 10:2 8 AM CDT 01/17/2017 10:28 AM CDT Narrative PN SOFT - 01/17/2017 10:35 AM CDT Performed at [facility] [address] [place] [address] CLIA number [id number] Ritesh Gilmore PA-C LAB_1 Performing Organization Address [facility] Co de Phone Number PN SOFT [address] [place] [address] * Creatinine / GFR (01/17/2017 10:18 AM CDT) Creatinine Serum 0.70 0.55 - 1.02 mg/dL PN SOFT Est GFR Am >60 >60 mL/min/1.7 3m2 PN SOFT Est GFR Non-Afr Am >60 >60 mL/min/1.7 3m2 PN SOFT Comment: Normal>60, moderate decrease 30 - 59, severe decrease 15 - 29, renal failure <15 mL/min/1.73 m2 NOTE: ??Choose the eGFR result above appropriate for the race of the patient. 01/17/2017 10:1 8 AM CDT 01/17/2017 10:17 AM CDT Narrative PN SOFT - 01/17/2017 11:03 AM CDT Performed at [facility] [address] [place] [id number] CLIA number [id number] Ritesh Gilmore PA-C LAB_1 Performing Organization Address [facility] Co de Phone Number PN SeeOn [address] [email or web address] [address] * MM Mammogram Screening Bilat W CAD (04/14/2013 12:27 PM CDT) Anatomical Region Laterality Modality Breast Bilateral Mammography Impressions 04/21/2013 7:57 AM CDT : BIRADS 1 Negative (overall) Follow Up Mammogram in 1 year - Both The results and recommendations of this examination will be communicated to the patient by the [facility] and we will attempt to schedule any recommended imaging follow up with the patient. Narrative 04/21/2013 7:57 AM CDT Compared to: 04/28/2011 Foreign Image(s) Mammogram, 04/22/2010 Foreign Image(s) Mammogram Bilateral Breast Findings: There are scattered fibroglandular densities (25-50%) in the breasts. No significant mass, calcifications or other abnormalities are seen in either breast. Procedure Note Estee Gonzalez MD - 04/25/2016 Compared to: 04/28/2011 Foreign Image(s) Mammogram, 04/22/2010 Foreign Image(s) Mammogram Bilateral Breast Findings: There are scattered fibroglandular densities (25-50%) in the breasts. No significant mass, calcifications or other abnormalities are seen in either breast. IMPRESSION : BIRADS 1 Negative (overall) Follow Up Mammogram in 1 year - Both The results and recommendations of this examination will be communicated to the patient by the [facility] and we will attempt to schedule any recommended imaging follow up with the patient. Josse Daniel MD RAD MERVIN * Pap Smear (03/26/2013 4:13 PM CDT) 03/26/2013 4:13 PM CDT Narrative HP CONVERSION - 04/01/2013 2:44 PM CDT FINAL GYNECOLOGICAL CYTOLOGY REPORT Pathology #: [id number] ?Date Obtained: 03/26/2013 ? Date Received: 03/28/2013 INTERPRETATION/RESULTS: Negative for Intraepithelial Lesion or Malignancy COMMENTS: HPV results to follow. SPECIMEN ADEQUACY: Satisfactory for Evaluation. ??No endocervical cells/transformation zone component present; post hysterectomy Verified on 04/01/2013 ??by RADHA GONZALEZ(ASCP) (electronic signature) CLINICAL NOTES: ?LMP: Not Stated, Hysterectomy LIQUID BASED PAP SMEAR SPECIMEN TYPE: ?VAGINAL & HPV REGARDLESS OF PAP RESULT PLEASE NOTE: The pap smear is a screening test designed to aid in the detection of cervical cancer and its precursor lesions. It is not a diagnostic procedure and should not be used as the sole means of detecting cervical cancer. Both false-positive and false-negative reports may occur. ? End of Report Josse Daniel MD LAB_1 HP CONVERSION * Endoscopy, colon, diagnostic (04/03/2006 7:04 PM CDT) Anatomical Region Laterality Modality Other User Conversion ET GI PROCEDURE BENNIE CASTANEDA * (ABNORMAL) Lipid Panel and Direct LDL(If Needed) (01/06/2005 9:54 AM CDT) Cholesterol/HDL Ratio Screen 4.1 No normal range HP CONVERSION Cholesterol 229(H) <200 mg/dL HP CONVERSION Comment: Borderline high: 200-239 mg/dL High risk: >240 mg/dL HDL Cholesterol 56 40 - 60 mg/dL HP CONVERSION Triglycerides 218(H) 0 - 149 mg/dL HP CONVERSION Comment: Borderline high: 150-199 mg/dL High risk: 200-499 mg/dL Very high risk: 500 mg/dL or greater LDL Calculated 129 0 - 130 mg/dL HP CONVERSION Comment: Desirable: <130 mg/dL (<100 if diabetes or coronary heart disease) 01/06/2005 9:54 AM CDT Dominique Malcolm MD LAB_1 HP CONVERSION * HIV Antibody (02/23/2000 10:37 AM CDT) HIV 1/HIV 2 Non Reac Non Reac HP CONVERSION 02/23/2000 10:3 7 AM CDT Dominique Malcolm MD LAB_1 HP CONVERSION * Microalb/Creat Ratio (02/23/2000 10:37 AM CDT) U Creat Random 133 mg/dL HP CONVERSION Microalbumin Urine 6.7 0.0 - 30.0 mg/L HP CONVERSION Microalbumin/Crea tinine Ratio 5.0 0.0 - 30.0 mg/G HP CONVERSION 02/23/2000 10:3 7 AM CDT Dominique Malcolm MD LAB_1 HP CONVERSION from Last 3 Months or Most Recently Relevant to Health Maintenance Care Teams Headmaster/Mistress Relationship Specialty Start Date End Date Юлия Ascencio MD [address] [place] [address] PCP - General Family Practice 11/19/19
--- OUTSIDE RECORDS SUMMARY | 2024-07-01 16:15 | XMS_ITS | Encounter Summary ---
Author Organization [facility] Address [address] [place] [address] Care Team Providers Care Electroencephalograph Technician Name Role Phone Elsewhere, Pcp Primary Care Provider Unavailabl e Reason for Visit * Reason Onset Date Comments Echo Move Up Request 06/23/2024 Encounter Details Date Type Department Care Team (Latest Contact Info) Description 06/23/2024 Clinical Communication Department of Cardiovascular Medicine in [place], [place] [address] [place] [address] Caleb Oliva, SABRINA, C.N.P., D.N.P. [address] [place] [phone] Echo Move Up Request Social History Tobacco Use Types Packs/Day Years Used Date Smoking Tobacco: Never Passive Smoke Exposure: Past Smokeless Tobacco: Never Alcohol Use Standard Drinks/Week Comments Not Currently 0 (1 standard drink = 0.6 oz pure alcohol) I may have a drink twice a year [facility] Utilities Answer Date Recorded In the past 12 months has e electric, gas, oil, or water [employer] threatened to shut off services in your home? No 08/15/2023 Humiliation, Afraid, Rape, and Kick questionnair e Answer Date Recorded Within the last year, have y ou been afraid of your partner or ex-partner? No 04/21/2022 Within the last year, have y ou been humiliated or emotionally abused in other ways by your partner or ex-partner? No Within the last year, have y ou been kicked, hit, slapped, or otherwise physically hurt by your partner or ex-partner? No 04/21/2022 Within the last year, have y ou been raped or forced to have any kind of sexual activity by your partner or ex-partner? No 04/21/2022 Social Connection and Isolat ion Panel [NHANES] Answer Date Recorded In a typical week, how many times do you talk on the phone with family, friends, or neighbors? More than three times a week 04/21/2022 How often do you get togethe r with friends or relatives? Once a week 04/21/2022 How often do you attend chur or holiness services? More than 4 times per year 04/21/2022 Do you belong to any clubs o r organizations such as yazidism groups, unions, fraternal or athletic groups, or school groups? Yes 04/21/2022 How often do you attend meet ings of the clubs or organizations you belong to? More than 4 times per year 04/21/2022 Are you , , di vorced, , never , or living with a partner? 04/21/2022 AUDIT-C Answer Date Recorded Q1: How often do you have a drink containing alc ohol? Monthly or less 04/21/2022 Q2: How many drinks containi ng alcohol do you have on a typical day when you are drinking? 1 or 2 04/21/2022 Q3: How often do you have si x or more drinks on one occasion? Never 04/21/2022 Overall Financial Resource Strain (CARDIA) Answe r Date Recorded How hard is it for you to pa y for the very basics like food, housing, medical care, and heating? Not very hard 04/21/2022 [facility] [place] [facility] - Occupational Stress Questionnaire Answer Date Recorded Do you feel stress - tense, restless, nervous, or anxious, or unable to sleep at night because your mind is troubled all the time - these days? To some extent 04/21/2022 Exercise Vital Sign Answer Date Recorde d On average, how many days pe r week do you engage in moderate to strenuous exercise (like a brisk walk)? 0 days 08/15/2023 On average, how many minutes do you engage in exercise at this level? 0 min 08/15/2023 Hunger Vital Sign Answer Date Recorded Within the past 12 months, y ou worried that your food would run out before you got the money to buy more. Never true 08/15/20 23 Within the past 12 months, t he food you bought just didn't last and you didn't have money to get more. Never true 08/15/2023 PRAPARE - Transportation Answer Date Re corded In the past 12 months, has l ack of transportation kept you from medical appointments or from getting medications? No 07/28 In the past 12 months, has l ack of transportation kept you from meetings, work, or from getting things needed for daily living? No 08/15/2023 Nutrition Answer Date Recorded Nutrition: EVOO Fat Source Yes 08/15 On average, how many serving s of fruits and vegetables do you eat per day (serving size is equal to 1 cup or approximately the size of a tennis ball)? 0-2 08/15/2023 Dental Answer Date Recorded Dental: Regular Dentist Yes 04/21/20 Employment Answer Date Recorded Employment status Employed and actively working without restrictions 08/15/2023 Housing Stability Answer Date Recorded What is your living situation today? [facility] 08/15/2023 Education Answer Date Recorded What is the highest level of school you have completed or the highest degree you have received? Bachelor's degree (e.g., BA, AB, BS) 04/21/2022 Comments Unknown Sex and Gender Information Value Date Recorded Sex Assigned at Female 05/03/2021 7:01 AM CDT Legal Sex Female 8:44 PM [employer] Gender Identity Female 04/30/2020 8:22 AM CDT Sexual Orientation Straight 04/30/2020 8: 22 AM CDT documented as of this encounter Plan of Treatment Upcoming Encounters Date Type Department Care Team (Latest Contact Info) Description 08/25/2024 8:10 AM [facility] Appointment Department of Laboratory Medicine and Pathology, [facility] in [place], [place] [address] [place] [address] Niall Busby M.D. [address] [place] [address] 08/25/2024 8:40 AM [facility] [employer] Ancillary Procedure Department of Cardiovascular Medicine in [place], [place] [address] [place] [phone] Niall Busby M.D. [address] [place] [phone] 08/25/2024 9:15 AM [facility] Appointment Department of Radiology, [facility], in [place], [place] [address] [place] [phone] Niall Busby M.D. [address] [place] [phone] 08/25/2024 2:00 PM [facility] Office Visit Department of Cardiovascular Medicine in [place], [place] [address] [place] [phone] Caleb Oliva APRN, C.N.P., D.N.P. [address] [place] [address] documented as of this encounter Visit Diagnoses Not on filedocumented in this encounter Additional Health Concerns Assessment Noted Time PHQ-9 Depression Total Score: 8 07/18/20 16 7:54 AM [facility] documented as of this encounter Care Teams Electroencephalograph Technician Relationship Specialty Start Date End Date Elsewhere, Pcp PCP - General Internal Medicine 04/21/22 documented as of this encounter
--- OUTSIDE RECORDS SUMMARY | 2024-07-01 16:15 | XMS_ITS | Referral Summary ---
Author Organization [facility] Address [address] [place] [address] Care Team Providers Care Shift Boss Name Role Phone Elsewhere, Pcp Primary Care Provider Unavailabl e Source Comments Patient records contain information from all sites at [facility]. For routine questions regarding patient records, call [phone] during business hours, M-F 8:00 AM - 5:00 PM Central Time. Record requests for emergency care only can be directed to [phone] at any time.[facility] Encounters Date Type Department Care Team Description 06/23/2024 Clinical Communication Department of Cardiovascular Medicine in [place], [place] [address] [place] [phone] Caleb Oliva APRN, C.N.P., D.N.P. Echo Move Up Request from Last 3 Months Allergies Active Allergy Reactions Criticality Noted Date Comments Cigarette Smoke Shortness of breath (Reselect Reaction) 04/21/2022 SMOKE: House Dust Mite Other (see comments) 07/18/2016 Saw Dust difficulty swallowing Penicillins Other (see comments) 04/29/2020 Unknown Medications metFORMIN (GLUCOPHAGE) 500 mg tablet Take 1,000 mg by mouth 2 (two) times a day. 8 Active rosuvastatin (CRESTOR) 40 mg tablet Take 40 mg by mouth daily. 1 Active WPLFC-5-[id number]-EPA -DPA-FISH OIL ORAL Take 1 capsule by mouth as needed. Unscheduled basis Active Jardiance 25 mg tablet Take 25 mg by mouth daily. 1 Active liraglutide (Victoza 3-Georges) 0.6 mg/0.1 mL (18 mg/3 mL) injection Inject 1.2 mg under the skin daily. 2 Active folic acid 1 mg tablet Take 1 mg by mouth daily. 2 Active sulfaSALAzine (AZULFIDINE EN-TABS) 500 mg EC tablet Take 3 tablets by mouth 2 (two) times a day. TAKE 3 TABLETS BY MOUTH TWICE DAILY AFTER MEALS 2 Active cholecalciferol , vitamin D3, (VITAMIN D3 ORAL) Take 500 Units by mouth daily. 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 [employer], or water [employer] threatened to shut off services in your [...] How often do you attend chur or confucianist services? More than 4 times per year 04/21/2022 Do you belong to any clubs o r organizations such as jehovah's witness groups, unions, fraternal or athletic groups, or [...] care, and heating? Not very hard 04/21/2022 [facility] Occup[facility] ional Health - Occupational Stress [...] your living situation today? I have a [facility] place to live 08/15/2023 Education Answer Date Recorded What is the highest level of school you have completed or the highest degree you have received? Bachelor's degree (e.g., BA, AB, BS) 04/21/2022 Comments Unknown Sex and Gender Information Value Date Recorded Sex Assigned at Female 05/03/2021 7:01 AM CDT Legal Sex Female 8:44 PM TALENT ACQUISITION RELATIONSHIP MANAGER Gender Identity Female 04/30/2020 8:22 AM CDT Sexual Orientation Straight 04/30/2020 8: 22 AM CDT Last Filed Vital Signs Vital Sign Reading Time Taken Comments Blood Pressure 106/69 08/16/2023 11:11 AM TALENT ACQUISITION RELATIONSHIP MANAGER Pulse 106 08/16/2023 11:11 AM TALENT ACQUISITION RELATIONSHIP MANAGER Temperature - - Respiratory Rate 20 02/11/2016 1:50 PM CDT Vital sign result from Clinical Notes. Oxygen Saturation - - Inhaled Oxygen Concentration - - Weight 98 kg (216 lb 0.8 oz) 04/25/2022 10:26 AM CDT Height 163.1 cm (5' 4.21) 04/25/2022 1 0:26 AM CDT shoes off Body Mass Index 36.84 04/25/2022 10:26 AM CDT Plan of Treatment Upcoming Encounters Date Type Department Care Team (Latest Contact Info) Description 08/25/2024 8:10 AM TALENT ACQUISITION RELATIONSHIP MANAGER Appointment Department of Laboratory Medicine and Pathology, [facility] in [place], [place] [address] [place] [address] Niall Busby M.D. [address] [place] [phone] 08/25/2024 8:40 AM TALENT ACQUISITION RELATIONSHIP MANAGER Ancillary Procedure Department of Cardiovascular Medicine in [place], [place] [address] [place] [phone] Niall Busby M.D. [address] [place] [phone] 08/25/2024 9:15 AM TALENT ACQUISITION RELATIONSHIP MANAGER Appointment Department of Radiology, [facility] in [place], [place] [address] [place] [address] Niall Busby M.D. [address] [place] [phone] 08/25/2024 2:00 PM TALENT ACQUISITION RELATIONSHIP MANAGER Office Visit Department of Cardiovascular Medicine in [place], [place] [address] [place] [address] Caleb Oliva APRN, C.N.P., D.N.P. [address] [place] [phone] Procedures Procedure Name Priority Date/Time Associated Diagnosis Comments LIPID PANEL, S Routine 08/16/2023 7:08 AM TALENT ACQUISITION RELATIONSHIP MANAGER Stenosis Aortic Valve Acquired CREATININE WITH EGFR, S/P Routine 08/16/2023 7:08 AM TALENT ACQUISITION RELATIONSHIP MANAGER Stenosis Aortic Valve Acquired BI BREAST SCREENING BILATERAL Routine 07/18/2016 12:23 PM TALENT ACQUISITION RELATIONSHIP MANAGER from Last 3 Months or Most Recently Relevant to Health Maintenance Results * Lipid Panel (08/16/2023 7:08 AM TALENT ACQUISITION RELATIONSHIP MANAGER) Triglycerides 102 mg/dL 08/16/2023 8:10 AM TALENT ACQUISITION RELATIONSHIP MANAGER DTL Comment: ----REFERENCE VALUE---- Normal: <150 mg/dL Borderline High: 150-199 mg/dL High: 200-499 mg/dL Very High: > or =500 mg/dL Cholesterol, Total 147 mg/dL 2022 8:10 AM TALENT ACQUISITION RELATIONSHIP MANAGER DTL Comment: ----REFERENCE VALUE---- Desirable: < 200 mg/dL Borderline High: 200 - 239 mg/dL High: > or = 240 mg/dL Cholesterol, LDL, Calculated 66 mg/dL 08/16/2023 8:10 AM TALENT ACQUISITION RELATIONSHIP MANAGER DTL Comment: ----REFERENCE VALUE---- Desirable: <100 mg/dL Above Desirable: 100-129 mg/dL Borderline High: 130-159 mg/dL High: 160-189 mg/dL Very High: >=190 mg/dL ----ADDITIONAL INFORMATION---- LDL cholesterol calculated using the Isidro/NIH equation. Cholesterol, HDL, S 62 >=50 mg/dL 08/16/2023 8:10 AM TALENT ACQUISITION RELATIONSHIP MANAGER DTL Cholesterol, Non-HDL, Calculated 85 mg/dL 08/16/2023 8:10 AM TALENT ACQUISITION RELATIONSHIP MANAGER DTL Comment: ----REFERENCE VALUE---- Desirable: <130 mg/dL Above Desirable: 130-159 mg/dL Borderline High: 160-189 mg/dL High: 190-219 mg/dL Very High: > or =220 mg/dL Fasting (8 HR or more) Yes 08/16/2023 7:44 AM TALENT ACQUISITION RELATIONSHIP MANAGER DTL Blood (Blood, Venous) 08/16/2023 7:08 AM TALENT ACQUISITION RELATIONSHIP MANAGER 08/16/2023 7:44 AM TALENT ACQUISITION RELATIONSHIP MANAGER us Niall Busby M.D. LAB BLOOD ADD-ON Final Resu lt [facility] [address] [place] [address], [place] [facility] [address] [place] [address] * Creatinine with Estimated GFR (08/16/2023 7:08 AM TALENT ACQUISITION RELATIONSHIP MANAGER) Creatinine 0.86 0.59 - 1.04 mg/dL 08/16/2023 8:10 AM TALENT ACQUISITION RELATIONSHIP MANAGER DTL Estimated GFR (eGFR) 79 >=60 mL/min/BSA 08/16/2023 8:10 AM TALENT ACQUISITION RELATIONSHIP MANAGER DTL Comment: Estimated GFR calculated using the 2020 CKD_EPI creatinine equation. Blood (Blood, Venous) 08/16/2023 7:08 AM TALENT ACQUISITION RELATIONSHIP MANAGER 08/16/2023 7:44 AM TALENT ACQUISITION RELATIONSHIP MANAGER us Niall Busby M.D. LAB BLOOD ADD-ON Final Resu lt [facility] [address] [place] [address], [place] [facility] [address] [place] [address] * BI Breast Screening Bilateral (07/18/2016 12:23 PM TALENT ACQUISITION RELATIONSHIP MANAGER) Anatomical Region Laterality Modality Breast Bilateral Mammography 07/18/2016 12:2 3 PM TALENT ACQUISITION RELATIONSHIP MANAGER Impressions 07/18/2016 2:01 PM TALENT ACQUISITION RELATIONSHIP MANAGER Negative. RECOMMENDATION: Annual screening mammography. BI-RADS ASSESSMENT: 1: Negative. LETTER: L1/2S Electronically signed by: ?? Nick Irvin MD [id number] 18-Jul-2016 14:01 Narrative 07/18/2016 2:01 PM TALENT ACQUISITION RELATIONSHIP MANAGER 18-Jul-2016 12:23:00 ??Exam: Mammo Screen Bilat Indications: General Medical Exam Adult (GME);Fatigue NOS;Hyperlipidemia NOS;Apnea Sleep Obstructive (FANTASMA);Morbid Obesity Body Mass Index (BMI) >= 40 Adult ORIGINAL REPORT - 18-Jul-2016 14:01:00 EXAM: Digital Screening Mammography Bilateral Computer-aided detection equipment was used during interpretation. COMPARISON: Prior exams were available for comparison. DENSITY: a. The breast(s) are almost entirely fatty. FINDINGS: No mammographic findings of malignancy. Procedure Note Nick Irvin M.D. - 11/22/2017 18-Jul-2016 12:23:00 Exam: Mammo Screen Bilat Indications: General Medical Exam Adult (GME);Fatigue NOS;HyperlipidemiaNOS;Apnea Sleep Obstructive (FANTASMA);Morbid Obesity Body Mass Index (BMI) >=40 Adult ORIGINAL REPORT - 18-Jul-2016 14:01:00 EXAM: Digital Screening Mammography Bilateral Computer-aided detection equipment was used during interpretation. COMPARISON: Prior exams were available for comparison. DENSITY: a. The breast(s) are almost entirely fatty. FINDINGS: No mammographic findings of malignancy. IMPRESSION: Negative. RECOMMENDATION: Annual screening mammography. BI-RADS ASSESSMENT: 1: Negative. LETTER: L1/2S Electronically signed by: Nick Irvin MD [id number] 18-Jul-2016 14:01 Nadeem Husain M.D. IMG BI PROCEDURES Final Res ult from Last 3 Months or Most Recently Relevant to Health Maintenance Administered Medications Insurance [facility] Care Teams Shift Boss Relationship Specialty Start Date End Date Elsewhere, Pcp PCP - General Internal Medicine 04/21/22
--- OUTSIDE RECORDS SUMMARY | 2024-07-01 16:15 | XMS_ITS | Clinical Summary ---
Author Organization [facility] Address [address] [place] [address] Care Team Providers Care Enroller Name Role Phone [facility]- Unavailable [facility]- Primary Care Provider Allergies Active Allergy Reactions Criticality Noted Date Comments Penicillins Unknown 04/29/2020 Unknown Medications empagliflozin (JARDIANCE) 25 MG TABS tablet Take 1 tablet by mouth daily 2 Active liraglutide (VICTOZA PEN) 18 MG/3ML solution Inject 1.2 mg Subcutaneous 2 Active mesalamine (LIALDA) 1.[address] tablet Take 4,800 mg by mouth Active sulfaSALAzine ER (AZULFIDINE EN) 500 MG EC tablet Take 1,500 mg by mouth 2 Active Social History Tobacco Use Types Packs/Day Years Used Date Smoking Tobacco: Never Assessed Adolescent Education Answer Date Record ed Getting School Help Needed Not on file 05/25 Comments No Sex and Gender Information Value Date Recorded Sex Assigned at Not on file Legal Sex Female 3:24 AM PURSE SEINER Gender Identity Not on file Sexual Orientation Not on file Last Filed Vital Signs Vital Sign Reading Time Taken Comments Blood Pressure 121/79 05/25/2023 1:40 AM CDT Pulse 103 05/25/2023 1:40 AM CDT Temperature 36.7 ??C (98 ??F) 05/24/2023 10:00 PM CDT Respiratory Rate 16 05/24/2023 10:00 PM CDT Oxygen Saturation 95% 05/25/2023 1:40 AM CDT Inhaled Oxygen Concentration - - Weight - - Height - - Body Mass Index - - Plan of Treatment Health Maintenance Due Date Last Done Comments ADVANCE CARE PLANNING 1966 ANNUAL REVIEW OF HM ORDERS 1966 CT COLONOGRAPHY 1966 FIT 1966 FLEX SIG 1966 GLUCOSE 1966 YEARLY PREVENTIVE VISIT 1966 sDNA (Cologuard) 1966 COVID-19 Vaccine (#1) 1971 Pneumococcal Vaccine: Pediatrics (0 to 5 Years) and At-Risk Patients (6 to 64 Years) (1 of 2 - PCV) 1972 COLONOSCOPY 1976 COLORECTAL CANCER SCREENING 1976 HIV SCREENING 1981 HEPATITIS C SCREENING 1984 HEPATITIS B IMMUNIZATION (1 of 3 - 19+ 3-dose series) 1985 ZOSTER IMMUNIZATION (1 of 2) 1985 PAP 1987 LIPID 2006 MAMMO SCREENING 04/14/2015 04/14/2013 DTAP/TDAP/TD IMMUNIZATION (2 - Td or Tdap) 03/06/2023 03/06/2013, 04/14/2003 PHQ-2 (once per calendar year) 2023 INFLUENZA VACCINE (#1) 2024 3, 06/15/2004, 08/07/2003 RSV VACCINE (1 - 1-dose 75+ series) 2041 HPV IMMUNIZATION Aged Out No longer e ligible based on patient's age to complete this topic MENINGITIS IMMUNIZATION Aged Out No l onger eligible based on patient's age to complete this topic RSV MONOCLONAL ANTIBODY Aged Out No l onger eligible based on patient's age to complete this topic Insurance [employer] Care Teams Enroller Relationship Specialty Start Date End Date [facility]- [address] [place] [address] PCP - General 05/24/23 [facility]- [address] [place], [place] [phone] 05/24/23
--- OUTSIDE RECORDS SUMMARY | 2024-07-01 16:15 | XMS_ITS | Clinical Summary ---
Author Organization [facility] Address [address] [place] [address] Care Team Providers Care Mutuel Cashier Name Role Phone Elsewhere, Pcp Primary Care Provider Unavailabl e Source Comments Patient records contain information from all sites at [facility]. For routine questions regarding patient records, call [phone] during business hours, M-F 8:00 AM - 5:00 PM Central Time. Record requests for emergency care only can be directed to [phone] at any time.[facility] Allergies Active Allergy Reactions Criticality Noted Date [...] 40 mg by mouth daily. 1 Active [id number] -DPA-FISH OIL ORAL Take 1 capsule by [...] Coronary Artery Graft Status Post 02/15/2016 04/24/2022 Encounters Date Type Department Care Team Description 06/23/2024 Clinical Communication Department of Cardiovascular Medicine in [place] [address] [place] [address] Caleb Oliva, SABRINA, C.N.P., D.N.P. Echo Move Up Request from Last 3 Months Immunizations Name Administration Dates Next Due Influenza Split 05/10/2016 Tdap 03/06/2013 Family History Medical History Relation Name Comments Diabetes Brother 1 Jigar Jr Jenna Stroke Brother 1 Jigar Jr Jenna Hyperlipidemia Brother 2 Cyril West Jr Diabetes Father Jigar Pateljoanne, Sr Coronary artery disease Mother Stefania May h Diabetes Mother Stefania West Hyperlipidemia Mother Stefania West Obesity Mother Stefaina West Diabetes Mother's Sister 1 Elida Ngo Diabetes Mother's Sister 2 Amy Lozano Stroke Paternal Grandfather Wilmer Gil rain Stem Stroke Dementia Paternal Grandmother Jacy Pateljoanne Diabetes Paternal Grandmother Jacy Pateljoanne Ulcerative colitis Paternal Grandmother Jacy Jonh Relation Name Status Comments Brother 1 Jigar Jr Jenna Brother 2 Cyril West Jr Father Jigar Reyeslaura, Sr Mother Stefania West Mother's Sister 1 Elida Ngo Mother's Sister 2 Amy Lozano Paternal Grandfather Wilmer West Paternal Grandmother Jacy West Social History Tobacco Use Types Packs/Day Years Used Date Smoking Tobacco: Never Passive Smoke Exposure: Past Smokeless Tobacco: Never Tobacco Cessation:Counseling Given: Not Answered Alcohol Use Standard Drinks/Week Comments Not Currently 0 (1 standard drink = 0.6 oz pure alcohol) I may have a drink twice a year [facility] [employer] Answer Date Recorded In the past 12 months has e [employer], oil, or water [employer] threatened to shut off services in your [...] 04/21/2022 How often do you attend chur ch or congregational services? More than 4 times per year 04/21/2022 Do you belong to any clubs o r organizations such as mosque groups, unions, fraternal or athletic groups, or [...] care, and heating? Not very hard 04/21/2022 [facility] of Occupat ional Health - Occupational Stress [...] money to buy more. Never true 08/15/20 Within the past 12 months, t he [...] your living situation today? I have a [facility] place to live 08/15/2023 Education Answer Date Recorded What is the highest level of school you have completed or the highest degree you have received? Bachelor's degree (e.g., BA, AB, BS) 04/21/2022 Comments Unknown Sex and Gender Information Value Date Recorded Sex Assigned at Female 05/03/2021 7:01 AM CDT Legal Sex Female 8:44 PM CORRECTION OFFICER [employer] COUNTY JAIL Gender Identity Female 04/30/2020 8:22 AM CDT Sexual Orientation Straight 04/30/2020 8: 22 AM CDT Last Filed Vital Signs Vital Sign Reading Time Taken Comments Blood Pressure 106/69 08/16/2023 11:11 AM CORRECTION OFFICER [employer] OR COUNTY JAIL Pulse 106 08/16/2023 11:11 AM CORRECTION OFFICER [employer] COUNTY JAIL Temperature - - Respiratory Rate 20 02/11/2016 [...] (Latest Contact Info) Description 08/25/2024 8:10 AM CORRECTION OFFICER CITY OR COUNTY JAIL Appointment Department of Laboratory Medicine and Pathology, [facility] in [place], [place] [address] [place] [address] Niall Busby M.D. [address] [place] [phone] 08/25/2024 8:40 AM CORRECTION OFFICER [employer] OR COUNTY JAIL Ancillary Procedure Department of Cardiovascular Medicine in [place], [place] [address] [place] [phone] Niall Busby M.D. [address] [place] [phone] 08/25/2024 9:15 AM CORRECTION OFFICER [employer] OR COUNTY JAIL Appointment Department of Radiology, [facility] in [place], [place] [address] [place] [phone] Niall Busby M.D. [address] [place] [phone] 08/25/2024 2:00 PM CORRECTION OFFICER [employer] JAIL Office Visit Department of Cardiovascular Medicine in [place], [place] [address] [place] [phone] Caleb Oliva APRN, C.N.P., D.N.P. [address] [place] [phone] Health Maintenance Due Date Last Done Comments CT Colonography 1966 Cologuard 1966 Diabetic Office Visit with Foot Exam 1966 Hemoglobin A1C 1966 Hepatitis C Screening 1966 Urine Albumin 1966 Zoster Vaccines (1 of 2) 1985 Mammogram 07/18/2017 07/18/2016, 03/27, 04/14/2013, Additional history exists Colonoscopy 08/27/2019 08/27/2014 (Perf ormed elsewhere) Colorectal Cancer Surveillance 08/27/2019 COVID-19 Vaccine (3 - Pfizer risk series) 01/18/2021 12/21/2020, 11/30/2020 Depression Screening (Annual PHQ-2) 08/27/2023 Influenza Vaccine (#1) 2024 , 07/16/2022, 05/19/2021, Additional history exists Dilated Eye Exam 07/30/2024 07/30/2023, , 07/08/2021, Additional history exists Creatinine Level (Kidney Function Test) 08/16/2024 08/16/2023, 04/24/2022, 05/03/2021, Additional history exists Office Visit for Blood Pressure Check / Re-check 08/16/2024 08/16/2023 DTaP,Tdap,and Td Vaccines (3 - Td or Tdap) 11/06/2026 11/06/2016, 03/06/2013, 04/14/2003 Lipid (Cholesterol) Screening 08/16/2028 08/16/2023, 04/24/2022, 05/03/2021, Additional history exists Hepatitis B Vaccines Completed 10/16/2008, 04/06/2008, 03/06/2008 Pneumococcal vaccine (0-64 years) Completed 09/27/2023, 07/11/2018, 12/25/2017 IPV Vaccines Aged Out No longer eligi ble based on patient's age to complete this topic Procedures Procedure Name Priority Date/Time Associated Diagnosis Comments LIPID PANEL, S Routine 08/16/2023 7:08 AM CORRECTION OFFICER [employer] JAIL Stenosis Aortic Valve Acquired CREATININE WITH EGFR, S/P Routine 08/16/2023 7:08 AM CORRECTION OFFICER [employer] JAIL Stenosis Aortic Valve Acquired BI BREAST SCREENING BILATERAL Routine 07/18/2016 12:23 PM CORRECTION OFFICER [employer] OR COUNTY JAIL from Last 3 Months or Most Recently Relevant to Health Maintenance Results * Lipid Panel (08/16/2023 7:08 AM CORRECTION OFFICER [employer] OR COUNTY JAIL) Triglycerides 102 mg/dL 08/16/2023 8:10 AM CORRECTION OFFICER [employer] OR COUNTY JAIL DTL Comment: ----REFERENCE VALUE---- Normal: <150 mg/dL Borderline High: 150-199 mg/dL High: 200-499 mg/dL Very High: > or =500 mg/dL Cholesterol, Total 147 mg/dL 2022 8:10 AM CORRECTION OFFICER [employer] JAIL DTL Comment: ----REFERENCE VALUE---- Desirable: < 200 mg/dL Borderline High: 200 - 239 mg/dL High: > or = 240 mg/dL Cholesterol, LDL, Calculated 66 mg/dL 08/16/2023 8:10 AM CORRECTION OFFICER [employer] JAIL DTL Comment: ----REFERENCE VALUE---- Desirable: <100 mg/dL Above Desirable: 100-129 mg/dL Borderline High: 130-159 mg/dL High: 160-189 mg/dL Very High: >=190 mg/dL ----ADDITIONAL INFORMATION---- LDL cholesterol calculated using the Isidro/NIH equation. Cholesterol, HDL, S 62 >=50 mg/dL 08/16/2023 8:10 AM CORRECTION OFFICER [employer] JAIL DTL Cholesterol, Non-HDL, Calculated 85 mg/dL 08/16/2023 8:10 AM CORRECTION OFFICER [employer] JAIL DTL Comment: ----REFERENCE VALUE---- Desirable: <130 mg/dL Above Desirable: 130-159 mg/dL Borderline High: 160-189 mg/dL High: 190-219 mg/dL Very High: > or =220 mg/dL Fasting (8 HR or more) Yes 08/16/2023 7:44 AM CORRECTION OFFICER [employer] JAIL DTL Blood (Blood, Venous) 08/16/2023 7:08 AM CORRECTION OFFICER [employer] JAIL 08/16/2023 7:44 AM CORRECTION OFFICER [employer]AIL us Niall Busby M.D. LAB BLOOD ADD-ON Final Resu lt Performing Organization Address [facility] de Phone Number [facility] [address] [place] [address], [place] [address] * Creatinine with Estimated GFR (08/16/2023 7:08 AM CORRECTION OFFICER [employer]) Creatinine 0.86 0.59 - 1.04 mg/dL 08/16/2023 8:10 AM CORRECTION OFFICER [employer] JAIL DTL Estimated GFR (eGFR) 79 >=60 mL/min/BSA 08/16/2023 8:10 AM CORRECTION OFFICER [employer] DTL Comment: Estimated GFR calculated using the 2020 CKD_EPI creatinine equation. Blood (Blood, Venous) 08/16/2023 7:08 AM CORRECTION OFFICER [employer] JAIL 08/16/2023 7:44 AM CORRECTION OFFICER [employer] us Niall Busby M.D. LAB BLOOD ADD-ON Final Resu lt Performing Organization Address [facility] Co de Phone Number [facility] [address] [place] [address], [facility] [address] [place] [address] * BI Breast Screening Bilateral (07/18/2016 12:23 PM CORRECTION OFFICER [employer]) Anatomical Region Laterality Modality Breast Bilateral Mammography 07/18/2016 12:2 3 PM CORRECTION OFF[employer]ER [employer] Impressions 07/18/2016 2:01 PM CORRECTION OFFICER [employer] Negative. RECOMMENDATION: Annual screening mammography. BI-RADS ASSESSMENT: 1: Negative. LETTER: L1/2S Electronically signed by: ?? Nick Irvin MD [id number] 18-Jul-2016 14:01 Narrative 07/18/2016 2:01 PM CORRECTION OFF[employer] 18-Jul-2016 12:23:00 ??Exam: Mammo Screen Bilat Indications: [...] L1/2S Electronically signed by: Nick Irvin MD [id number] 18-Jul-2016 14:01 Nadeem OROZCO BI PROCEDURES Final Res ult from Last 3 Months or Most Recently Relevant to Health Maintenance Insurance [employer] Care Teams Mutuel Cashier Relationship Specialty Start Date End Date Elsewhere, Pcp PCP - General Internal Medicine 04/21/22
--- OUTSIDE RECORDS SUMMARY | 2024-07-01 16:15 | XMS_ITS ---
Author Organization [facility] Address [address] [place] [address] Care Team Providers Care Inspector Cold Working Name Role Phone Unavailable Unavailable Unavailable Surgery Details Not on file Complications Check Surgery Details section. Procedure Estimated Blood Loss Check Surgery Details section. Procedure Findings Check Surgery Details section. Procedure Specimens Taken Check Surgery Details section.
--- OUTSIDE RECORDS SUMMARY | 2024-07-01 16:15 | XMS_ITS | Referral Summary ---
Author Organization [facility] Address [address] [place] [id number] Care Team Providers [facility] [place] Dem[facility] Name Role Phone [facility]- Unavailable [facility]- Primary Care Provider Allergies Active [...] on file Legal Sex Female 3:24 AM [employer]SEM[employer] Gender Identity Not on file Sexual Orientation [...] Mass Index - - Plan of Treatment Not on file Insurance [employer] [facility] [employer] [place] Demonstr[place] Relationship Specialty Start Date End Date [facility] [address] [place], [place] [phone] PCP - General 05/24/23 [facility] [address] [place], [place] [phone] 05/24/23
--- NOTE | 2024-07-01 16:20 | CRLHL7_ITS ---
For Patients: As a result of the Century Cures Act, medical imaging exams and procedure reports are released immediately into your electronic medical record. You may view this report before your referring provider. If you have questions, please contact your health care provider. BILATERAL SCREENING MAMMOGRAM WITH COMPUTER-AIDED DETECTION AND TOMOSYNTHESIS TECHNIQUE: CC and MLO views were obtained. These mammographic images have been obtained using full-field digital technique. These mammographic images were interpreted with the benefit of computer-aided detection. Breast tomosynthesis was used in this interpretation. COMPARISON FILM: 01/02/22, 07/23/20, 12/08/14. FINDINGS: There are scattered areas of fibroglandular density. IMPRESSION: There is no radiographic evidence for malignancy. ASSESSMENT: BI-RADS Category 1: Negative RECOMMENDATION: Routine screening mammogram in 1 year. A lay language report of this examination will be provided to the patient. ELFEGO BECKETT M.D. Diagnostic Radiologist [email or web address] Transcribed: 1:[address]/Dictated by: Elfego Beckett MD @ 07/07/2024 11:23:00 AM (Electronically Signed)
== END 2024-07-01 16:13 | disposition home or self-care (01) ==
LOC: MAMMO 16:13
PROVIDERS: PCP Physician Assistant Medical; Visit Provider Physician Assistant Medical
DX: Z12.31 Encounter for screening mammogram for malignant neoplasm of breast (principal)
CPT/HCPCS: 77063; 77067

== ENCOUNTER 2024-11-27 11:05 | Outpatient (CLI) | payer OTHER, SELFPAY | END 2024-11-27 11:06 | disposition home or self-care (01) | LOC: LKVREF 11:06 | PROVIDERS: PCP Physician Assistant Medical; Visit Provider Physician Assistant Medical | DX: E11.9 Type 2 diabetes mellitus without complications (principal); Z79.84 Long term (current) use of oral hypoglycemic drugs; Z79.85 Long-term (current) use of injectable non-insulin antidiabetic drugs | CPT/HCPCS: 82043; 82570 ==

== ENCOUNTER 2025-06-24 15:41 | Outpatient (CLI) | payer OTHER, SELFPAY | END 2025-06-24 15:42 | disposition home or self-care (01) | PROVIDERS: PCP Physician Assistant Medical; Visit Provider Physician Assistant Medical | DX: E11.9 Type 2 diabetes mellitus without complications (principal); K51.90 Ulcerative colitis, unspecified, without complications; E55.9 Vitamin D deficiency, unspecified | CPT/HCPCS: 80053; 82306; 82607; 84443 ==